=== PATIENT | male | born 1990 | race Caucasian/White ===

== ENCOUNTER 2020-10-10 16:17 | Emergency (ER) | payer OTHER ==
[~2020-10-10] VITALS: Ht 182 cm; Wt 113.0 kg
[2020-10-10 16:17] VITALS: BP 119/81
--- NOTE | 2020-10-10 16:40 | ED Fall/Injury ---
General Chief Complaint: Laceration Stated Complaint: BACK OF HEAD LAC Nursing Triage Note: ARRIVED VIA AMB TO [facility]. STATES HE WAS STANDING ON METAL SHELVING AND FELL THRU A GLASS WINDSHIELD. Source: patient Exam Limitations: no limitations History of Present Illness Date Seen by Provider: Oct 10, 2020 Time Seen by Provider: 16:36 Initial Comments To ER with a right occipital scalp laceration. He was climbing on some of his shelving in his house when it collapsed. Upon 1 of these shelves was a [employer] bus window that he had displayed. That glass broke during the fall and lacerated the back of his scalp. He also has an abrasion to the left posterior superior iliac crest and an abrasion/contusion to the posterior left chest wall. No other injuries. Tetanus is not up-to-date. No loss of consciousness does have a headache and mild neck pain. Occurred: just prior to arrival Severity: mild Injuries/Pain Location: head, neck, back Loss of Consciousness: no loss of consciousness Associated Symptoms (Fall): Headache Allergies and Home Medications Allergies Coded Allergies: No Known Drug Allergies (Unverified , 10/10/20) Patient Home Medication List Home Medication List Reviewed: Yes Review of Systems Review of Systems Constitutional: see HPI Eyes: No Symptoms Reported Ears, Nose, Mouth, Throat: no symptoms reported Respiratory: no symptoms reported Cardiovascular: no symptoms reported Genitourinary: no symptoms reported Musculoskeletal: see HPI Skin: no symptoms reported Psychiatric/Neurological: No Symptoms Reported Past Dtcfbnv-Zscuku-Hndhah Hx Patient Social History Alcohol Use: Denies Use Smoking Status: Never a Smoker Recent Infectious Disease Expo: No Recent Hopitalizations: No Immunizations Up To Date Tetanus Booster (TDap): More than 5yrs Seasonal Allergies Seasonal Allergies: No Past Medical History Adenoidectomy, Appendectomy Respiratory: No Cardiac: No Neurological: No Genitourinary: No Gastrointestinal: No Musculoskeletal: No Endocrine: No HEENT: No Cancer: No Psychosocial: Yes PTSD Integumentary: No Physical Exam Vital Signs Vital Signs - First Documented 10/10/20 16:17 Temp 36.0 Pulse 112 Resp 16 B/P (MAP) 119/81 (94) Pulse Ox 95 O2 Delivery Room Air Capillary Refill : Less Than 3 Seconds Height, Weight, BMI Height: '" Weight: lbs. oz. kg; 34.00 BMI Method: General Appearance: WD/WN, no apparent distress HEENT: PERRL/EOMI, normal ENT inspection Neck: non-tender, full range of motion Cardiovascular: regular rate, rhythm, no murmur Respiratory: no respiratory distress, no accessory muscle use Gastrointestinal: normal bowel sounds, non tender, soft Extremities: normal range of motion, non-tender Neurologic/Psychiatric: alert, normal mood/affect, oriented x 3 Skin: normal color, warm/dry, other (Abrasions to the left posterior iliac crest. Contusion to the left lateral posterior chest wall. Nontender to palpation. 3 cm laceration to the right occipital scalp depth to the subcutaneous tissue without active bleeding.) [place] Coma Score Best Eye Response: (4) Open Spontaneously Best Verbal Response: (5) Oriented Best Motor Response: (6) Obeys Commands Dawna Total: 15 Progress/Results/Core Measures Results/Orders My Orders Orders - TASIA ZEE APRN Ct Head/Cervical Spine Wo (10/10/20 16:34) Chest 1 View, Ap/Pa Only (10/10/20 16:34) Lidocaine 1% Inj 20 Ml (Xylocaine 1% Inj (10/10/20 16:45) Dipht,Pertuss(Acell),Tet Adult (Boostrix (10/10/20 16:45) Medications Given in ED Current Medications Medications Dose Ordered Sig/Tonny Route Start Time Stop Time Status Last Admin Dose Admin Diphtheria/ Tetanus/Acell Pertussis 0.5 ml ONCE ONCE IM 10/10/20 16:45 10/10/20 16:46 DC 10/10/20 16:45 0.5 ML Lidocaine HCl 20 ml ONCE ONCE INJ 10/10/20 16:45 10/10/20 16:46 DC 10/10/20 16:45 20 ML Vital Signs/I&O 10/10/20 16:17 Temp 36.0 Pulse 112 Resp 16 B/P (MAP) 119/81 (94) Pulse Ox 95 O2 Delivery Room Air Blood Pressure Mean: 94 Departure Communication (Admissions) Procedure note: The right occipital scalp laceration was anesthetized with 1% lidocaine without epinephrine totaling 5 mL. This was then irrigated with chlorhexidine/saline solution and scrubbed with the same. No foreign bodies were identified. This was then closed with 8 damion. Impression Primary Impression: Occipital scalp laceration Disposition: 01 HOME, SELF-CARE Condition: Stable Departure-Patient Inst. Decision time for Depature: 16:39 Referrals: NO,LOCAL PHYSICIAN (PCP/Family) Primary Care Physician Patient Instructions: Laceration Repair With [facility] ED Add. Discharge Instructions: 1. Return to ER to have the damion removed in about 5 to 7 days. You can shower letting water run over this starting tonight. All discharge instructions reviewed with patient and/or family. Voiced understanding. TASIA ZEE [employer] INS[employer] SALESPERSON Oct 10, 2020 16:39
[2020-10-10] MEDS ORDERED: TETANUS,DIPTH,PERTUSS P/F (BOOSTRIX) 0.5 ML VIAL IM ONE (16:45)
[2020-10-10] MEDS ORDERED: LIDOCAINE 1% INJ 20 ML 20 ML VIAL INJ ONE (16:45)
--- NOTE | 2020-10-10 16:55 | Diagnostic Imaging Report ---
CHEST 1 VIEW, AP/PA ONLY Indication: Fall, trauma Comparison: None available. Findings: No focal airspace disease in the visualized lungs. Please note that the posterior lower lobes are poorly evaluated by portable radiography. No pleural effusion or pneumothorax. Normal cardiomediastinal silhouette. No acute fracture within the clavicles or visualized ribs. Impression: 1. No acute cardiopulmonary process by portable radiography. Dictated by: Dictated on workstation # [id number]
--- NOTE | 2020-10-10 17:03 | Diagnostic Imaging Report ---
EXAMINATION: CT head and CT cervical spine without contrast. TECHNIQUE: All CT scans use one or more of the following dose optimizing techniques: automated exposure control, MA and/or KvP adjustment based on patient size and exam type or iterative reconstruction. HISTORY: Fall with injury to the head and neck. COMPARISON: None available. FINDINGS: HEAD: The ventricles and sulci are normal. No abnormal attenuation of brain parenchyma is present. No acute intracranial hemorrhage or abnormal extra-axial fluid collection is present. No hyperdense vessel. The calvarium is intact. There is soft tissue injury to the posterior scalp. The mastoid air cells are clear. The visualized paranasal sinuses are clear. The orbits are normal. C-SPINE: Vertebral body height and alignment are preserved. No acute fracture, dislocation, or destructive osseous process. No significant facet hypertrophy. No significant central canal or neuroforaminal stenosis. The paraspinous soft tissues are normal. The visualized thyroid gland is normal. The visualized lung apices are normal. IMPRESSION: 1. No acute intracranial abnormality. 2. No cervical spine fracture. 3. Soft tissue injury to the posterior scalp. No calvarial fracture. Dictated by: Dictated on workstation # [id number]
== END 2020-10-10 17:06 | disposition home or self-care (01) ==
LOC: ER 16:19
DX: S01.01XA Laceration without foreign body of scalp, initial encounter (principal); S20.20XA Contusion of thorax, unspecified, initial encounter; R40.2410 Glasgow coma scale score 13-15, unspecified time; Z23 Encounter for immunization; W25.XXXA Contact with sharp glass, initial encounter
CPT/HCPCS: 70450; 71045; 72125; 90715

== ENCOUNTER 2020-10-16 09:32 | Emergency (ER) | payer OTHER ==
[~2020-10-16] VITALS: Ht 182.8 cm; Wt 99.7 kg
[2020-10-16 09:37] VITALS: BP 114/74
== END 2020-10-16 09:46 | disposition home or self-care (01) ==
LOC: EDUNIT# 09:32 → ER 09:33
DX: Z48.02 Encounter for removal of sutures (principal)